=== PATIENT | male | born 1980 | race Two or more races ===

== ENCOUNTER 2024-09-28 14:41 | Emergency (ER) | payer MEDICAID ==
[~2024-09-28] VITALS: Ht 170.2 cm; Wt 85.3 kg
[2024-09-28] MEDS ORDERED: CEPH-570 PO (15:45)
[2024-09-28] MEDS ORDERED: KETOROLAC TROMETHAMINE INJ 30 MG/ML VIAL ONE (15:59)
[2024-09-28] MEDS ORDERED: ACETAMINOPHEN ES 500 MG TABLET ONE (16:00)
[2024-09-28] MEDS ORDERED: ACETAMINOPHEN 325 MG TABLET ONE (16:01)
[2024-09-28] MEDS: ACETAMINOPHEN 325 MG TABLET PO ONE (16:10)
[2024-09-28] MEDS: KETOROLAC TROMETHAMINE INJ 30 MG/ML VIAL IM ONE (16:11)
[2024-09-28 17:10] VITALS: BP 113/83; TEMP 98.2; O2SAT 85
== END 2024-09-28 17:11 | disposition home or self-care (01) ==
LOC: ER 15:05
DX: I87.312 Chronic venous hypertension (idiopathic) with ulcer of left lower extremity (principal); I10 Essential (primary) hypertension; E78.5 Hyperlipidemia, unspecified; E11.9 Type 2 diabetes mellitus without complications
CPT/HCPCS: 99283; 96372; J1885; A6403